=== PATIENT | female | born 1980 | race Caucasian/White ===

== ENCOUNTER 2024-03-14 16:04 | Inpatient (IN) | payer MEDICAID, OTHER ==
[~2024-03-14] VITALS: Ht 157.5 cm; Wt 60.6 kg
[~2024-03-14 16:04] MED LIST: DOC100C PO; IBUP-1456 PO; [UNRECOGNIZED DRUG - CODE]
[2024-03-14 17:10] LABS: Hematocrit 40.6 % (36.0-46.0); Hemoglobin 13.9 g/dL (12.2-16.2); Mean Corpuscular Hemoglobin 28.6 pg (28.0-32.0); Mean Corpuscular Hgb Conc. 34.3 g/dL (32.0-36.0); Mean Corpuscular Volume 83.5 fL (80.0-100.0); Platelet Count (auto) 373 10^3/uL (140-450); Red Blood Cells 4.86 10^6/uL (4.0-5.20); Red Cell Distribution Width 14.6 % (11.8-14.3)
[2024-03-14 17:26] LABS: Basophils % (manual) 0 (0.0-2.0); Blast Cells 0; Eosinophils % (manual) 0 (0-7); Metamyelocytes % 0; Myelocytes % 0; Promyelocytes % 0; Reactive Lymphocytes 0
[2024-03-14 17:40] LABS: Alanine Aminotransferase 30 U/L (7-40); Albumin 4.3 g/dL (3.2-4.8); Alkaline Phosphatase 155 U/L (46-116); Anion Gap 11 (5-15); Aspartate Aminotransferase 48 U/L (13-40); BUN/Creatinine Ratio 13.2 (10.0-20.0); Blood Urea Nitrogen 9 mg/dL (9-23); Calcium 8.7 mg/dL (8.7-10.4); Carbon Dioxide 21 mmol/L (20-30); Chloride 96 mmol/L (98-107); Glucose 102 mg/dL (74-106); Lipase 21 U/L (12-53); Potassium 3.9 mmol/L (3.5-5.1); Sodium 128 mmol/L (136-145)
[2024-03-14] MEDS: SODIUM CHLORIDE 0.9% 1,000 ML IV ONE ×2 (17:40→18:42)
[2024-03-14 17:41] LABS: Bilirubin, Total 1.8 mg/dL (0.2-1.0); Total Protein 6.9 g/dL (5.7-8.2)
[2024-03-14] MEDS: cefTRIAXone 1GM/50ML D5W 50 ML IV ONE (17:41)
[2024-03-14 17:45] LABS: CRP High Sensitivity > 20.0 mg/dL (<1.0)
[2024-03-14 18:00] VITALS: PULSE 113; RESP 19; O2SAT 96
[2024-03-14 18:11] LABS: Anisocytosis Slight; Band Neutrophils % (manual) 10; Lymphocytes % (manual) 7 (10.0-50.0); Monocytes % (manual) 7 (0-12); Platelet Estimate Adequate
[2024-03-14] MEDS: ACETAMINOPHEN 325 MG TAB PO ONE (18:17)
[2024-03-14] MEDS: fentaNYL CITRATE 100 MCG/2 ML VL IV ONE (18:49)
[2024-03-14 19:54] LABS: Urine Bacteria FEW /hpf (None Seen); Urine Blood TRACE /uL (Negative); Urine Clarity Turbid (Clear); Urine Color Colorless (Yellow); Urine Protein, UAD TRACE (Negative); Urine Specific Gravity 1.003 (1.001-1.035); Urine Urobilinogen Normal (Negative); Urine WBC 100 /hpf (0 - 5); Urine pH 5.5 (5.0-9.0)
[2024-03-14 20:10] LABS: Amphetamine Screen, Urine Pos (NEGATIVE); Barbiturate Scree,Urine Neg (NEGATIVE); Benzodiazephine Screen, Urine Neg (NEGATIVE); Cannabinoid Screen, Urine Neg (NEGATIVE); Cocaine Screen, Urine Neg (NEGATIVE); Opiate Scree,Urine Neg (NEGATIVE); Phencyclidine Screen, Urine Neg (NEGATIVE)
[2024-03-14] MEDS ORDERED: VANCOMYCIN PER PHARMACY 0 MG IV SCH (20:45)
[2024-03-14] MEDS ORDERED: VANCOMYCIN 1GM/200ML 200 ML IV ONE (20:45)
[2024-03-14] MEDS ORDERED: VANCOMYCIN 1GM/200ML 200 ML IV SCH (21:00)
[2024-03-14] MEDS: SODIUM CHLORIDE 0.9% 1,000 ML IV SCH (21:40)
[2024-03-14] MEDS: VANCOMYCIN 1GM/200ML 200 ML IV ONE (21:41)
[2024-03-14] MEDS: MORPHINE SULFATE INJ 2 MG/ml SYRG IV PRN (22:00)
[2024-03-15] VITALS (9 sets, daily range): BP systolic 99–128; BP diastolic 62–75; PULSE 63–120; RESP 15–20; TEMP 96.2–101.3; O2SAT 94–98
[2024-03-15] MEDS ORDERED: MORPHINE SULFATE INJ 2 MG/ml SYRG IV PRN (00:30)
[2024-03-15] MEDS ORDERED: NITROGLYCERIN 0.4 MG SL TAB SL PRN (00:30)
[2024-03-15] MEDS ORDERED: FLUO-126 PO (03:07)
[2024-03-15 05:47] LABS: Basophils # (auto) 0.1 10 ^3/uL (0-0.2); Basophils % (auto) 0.4 % (0.0-2.0); Eosinophils # (auto) 0 10 ^3/uL (0-0.8); Eosinophils % (auto) 0.1 % (0.0-7.0); Hematocrit 33.2 % (36.0-46.0); Hemoglobin 11.5 g/dL (12.2-16.2); Lymphocytes # (auto) 0.9 10 ^3/uL (0.4-5.4); Lymphocytes % (auto) 6.3 % (10.0-50.0); Mean Corpuscular Hemoglobin 28.8 pg (28.0-32.0); Mean Corpuscular Hgb Conc. 34.7 g/dL (32.0-36.0); Monocytes # (auto) 1.4 10 ^3/uL (0-1.3); Monocytes % (auto) 9.7 % (0.0-12.0); Neutrophils # (auto) 12.1 10 ^3/uL (1.6-8.6); Neutrophils % (auto) 83.5 % (37.0-80.0); Platelet Count (auto) 277 10^3/uL (140-450); Red Blood Cells 4.01 10^6/uL (4.0-5.20); Red Cell Distribution Width 14.5 % (11.8-14.3); White Blood Cell 14.5 10^3/uL (4.4-10.8)
[2024-03-15 06:05] LABS: Alanine Aminotransferase 23 U/L (7-40); Albumin 3.4 g/dL (3.2-4.8); Alkaline Phosphatase 130 U/L (46-116); Anion Gap 8 (5-15); Aspartate Aminotransferase 22 U/L (13-40); BUN/Creatinine Ratio 14.3 (10.0-20.0); Blood Urea Nitrogen 8 mg/dL (9-23); Calcium 8.1 mg/dL (8.7-10.4); Carbon Dioxide 24 mmol/L (20-30); Chloride 104 mmol/L (98-107); Glucose 129 mg/dL (74-106); Potassium 3.5 mmol/L (3.5-5.1)
[2024-03-15 06:06] LABS: Bilirubin, Total 0.7 mg/dL (0.2-1.0); Total Protein 5.8 g/dL (5.7-8.2)
[2024-03-15 06:16] LABS: Sodium 136 mmol/L (136-145)
[2024-03-15] MEDS: cefTRIAXone 1GM/50ML D5W 50 ML IV SCH (08:23)
[2024-03-15] MEDS: ONDANSETRON HCL 4 MG/2 ML VIAL IV PRN (08:26)
[2024-03-15] MEDS: DOCUSATE SOD 100 MG CAP PO PRN (08:57)
[2024-03-15] MEDS: ACETAMINOPHEN 325 MG TAB PO PRN (08:59)
[2024-03-15] MEDS: PNEUMOCOCCAL VACC POLYS 25 MCG/0.5 ML VIAL IM ONE (09:00)
[2024-03-15] MEDS ORDERED: VANCOMYCIN 1GM/200ML 200 ML IV SCH (10:00)
[2024-03-15] MEDS: LACTULOSE 20Gm/30ML SOLN PO ONE (16:51)
[2024-03-15] MEDS: DOCUSATE SOD 100 MG CAP PO SCH (16:51)
[2024-03-15] MEDS: FLUoxetine HCL 10 MG CAP PO ONE (20:59)
[2024-03-15] MEDS: LACTULOSE 20Gm/30ML SOLN PO SCH (22:14)
[2024-03-15] MEDS: HYDROcodone-ACET 5/325MG TAB PO PRN (22:14)
[2024-03-16] VITALS (9 sets, daily range): BP systolic 93–113; BP diastolic 51–75; PULSE 70–101; RESP 16–20; TEMP 97.7–98.9; O2SAT 96–99
[2024-03-16] MEDS: FLUoxetine HCL 10 MG CAP PO SCH (09:44)
[2024-03-16 15:34] LABS: Hemoglobin 11.8 g/dL (12.2-16.2); Mean Corpuscular Hgb Conc. 34.1 g/dL (32.0-36.0)
[2024-03-16 15:35] LABS: Chloride 106 mmol/L (98-107); Potassium 3.5 mmol/L (3.5-5.1); Sodium 138 mmol/L (136-145)
[2024-03-16 15:36] LABS: Anion Gap 6 (5-15); Calcium 7.9 mg/dL (8.7-10.4); Carbon Dioxide 26 mmol/L (20-30)
[2024-03-16 15:41] LABS: Glucose 106 mg/dL (74-106)
[2024-03-16 15:43] LABS: Hematocrit 34.7 % (36.0-46.0); Mean Corpuscular Hemoglobin 28.8 pg (28.0-32.0); Mean Corpuscular Volume 84.4 fL (80.0-100.0); Platelet Count (auto) 261 10^3/uL (140-450); Red Blood Cells 4.11 10^6/uL (4.0-5.20); Red Cell Distribution Width 14.3 % (11.8-14.3); White Blood Cell 8.4 10^3/uL (4.4-10.8)
[2024-03-16 15:47] LABS: Basophils % (manual) 0 (0.0-2.0); Blast Cells 0; Blood Urea Nitrogen < 5 mg/dL (9-23); Eosinophils % (manual) 0 (0-7); Metamyelocytes % 0; Myelocytes % 0; Promyelocytes % 0; Reactive Lymphocytes 0
[2024-03-16 18:05] LABS: Band Neutrophils % (manual) 5; Lymphocytes % (manual) 8 (10.0-50.0); Monocytes % (manual) 11 (0-12); Platelet Estimate Adequate
[2024-03-16 18:06] LABS: Anisocytosis Slight
[2024-03-16] MEDS ORDERED: IBUPROFEN 600 MG TAB PO PRN (18:30)
[2024-03-16] MEDS: HYDROcodone-ACET 7.5/325MG TAB PO PRN (19:51)
[2024-03-17] VITALS (9 sets, daily range): BP systolic 89–117; BP diastolic 48–77; PULSE 77–94; RESP 16–20; TEMP 97.4–98.5; O2SAT 94–100
[2024-03-17] MEDS: ONDANSETRON HCL 4 MG/2 ML VIAL IV PRN (01:21)
[2024-03-17 07:03] LABS: Basophils # (auto) 0.1 10 ^3/uL (0-0.2); Basophils % (auto) 0.9 % (0.0-2.0); Eosinophils # (auto) 0.2 10 ^3/uL (0-0.8); Eosinophils % (auto) 4.3 % (0.0-7.0); Hematocrit 31.7 % (36.0-46.0); Hemoglobin 11.1 g/dL (12.2-16.2); Lymphocytes # (auto) 1.2 10 ^3/uL (0.4-5.4); Lymphocytes % (auto) 21.8 % (10.0-50.0); Mean Corpuscular Hemoglobin 29.5 pg (28.0-32.0); Mean Corpuscular Volume 84.1 fL (80.0-100.0); Monocytes # (auto) 0.8 10 ^3/uL (0-1.3); Neutrophils # (auto) 3.2 10 ^3/uL (1.6-8.6); Platelet Count (auto) 273 10^3/uL (140-450); Red Blood Cells 3.77 10^6/uL (4.0-5.20); Red Cell Distribution Width 14.2 % (11.8-14.3); White Blood Cell 5.5 10^3/uL (4.4-10.8)
[2024-03-17 07:06] LABS: Calcium 8.1 mg/dL (8.7-10.4); Chloride 107 mmol/L (98-107); Potassium 3.4 mmol/L (3.5-5.1); Sodium 140 mmol/L (136-145)
[2024-03-17 07:07] LABS: Anion Gap 5 (5-15); Carbon Dioxide 28 mmol/L (20-30)
[2024-03-17 07:12] LABS: Glucose 95 mg/dL (74-106)
[2024-03-17 07:20] LABS: BUN/Creatinine Ratio 12.2 (10.0-20.0); Blood Urea Nitrogen < 5 mg/dL (9-23)
[2024-03-17] MEDS: POTASSIUM EFFERVESENT TAB 25 MEQ GT ONE (10:18)
[2024-03-18 01:00] VITALS: BP 105/60; PULSE 75; RESP 20; TEMP 98.1; O2SAT 99
[2024-03-18 05:00] VITALS: BP_SYST 93; BP_SYST 99; BP_DIAS 48; BP_DIAS 53; PULSE 80; PULSE 84; RESP 18; RESP 20; TEMP 97.6; TEMP 98.2; O2SAT 95; O2SAT 97
[2024-03-18 08:00] VITALS: PULSE 77; RESP 18; O2SAT 95
[2024-03-18 08:55] LABS: Basophils # (auto) 0.1 10 ^3/uL (0-0.2); Eosinophils # (auto) 0.2 10 ^3/uL (0-0.8); Eosinophils % (auto) 4.2 % (0.0-7.0); Hematocrit 32.1 % (36.0-46.0); Hemoglobin 10.9 g/dL (12.2-16.2); Lymphocytes # (auto) 1.4 10 ^3/uL (0.4-5.4); Lymphocytes % (auto) 27.7 % (10.0-50.0); Mean Corpuscular Hemoglobin 28.8 pg (28.0-32.0); Mean Corpuscular Volume 84.6 fL (80.0-100.0); Monocytes # (auto) 0.5 10 ^3/uL (0-1.3); Monocytes % (auto) 10.4 % (0.0-12.0); Neutrophils # (auto) 2.9 10 ^3/uL (1.6-8.6); Neutrophils % (auto) 56.7 % (37.0-80.0); Platelet Count (auto) 285 10^3/uL (140-450); Red Cell Distribution Width 14.2 % (11.8-14.3); White Blood Cell 5.1 10^3/uL (4.4-10.8)
[2024-03-18 09:00] VITALS: BP 101/75; PULSE 62; RESP 15; TEMP 98; O2SAT 100
[2024-03-18 09:24] LABS: Chloride 106 mmol/L (98-107); Potassium 3.5 mmol/L (3.5-5.1); Sodium 138 mmol/L (136-145)
[2024-03-18 09:25] LABS: Anion Gap 0 (5-15); Calcium 8.5 mg/dL (8.7-10.4); Carbon Dioxide 32 mmol/L (20-30)
[2024-03-18 09:30] LABS: Glucose 176 mg/dL (74-106)
[2024-03-18 09:35] LABS: BUN/Creatinine Ratio 9.6 (10.0-20.0); Blood Urea Nitrogen < 5 mg/dL (9-23)
[2024-03-18] MEDS: CEFPODOXIME PROXETIL 200 MG TAB PO ONE (11:00)
[2024-03-18] MEDS ORDERED: CEFD300C2 PO (11:58)
[2024-03-18] MEDS ORDERED: TRAM-626 PO (11:58)
[2024-03-18 13:19] VITALS: BP 105/62; PULSE 64; RESP 15; TEMP 98.2; O2SAT 98
[2024-03-18 13:50] VITALS: BP 94/52; PULSE 85; RESP 16; TEMP 99.2; O2SAT 95
[2024-03-18] MEDS ORDERED: CEFPODOXIME PROXETIL 200 MG TAB PO SCH (22:00)
== END 2024-03-18 16:12 | disposition home or self-care (01) | DRG 872 ==
LOC: EDBD 16:04 → ER 16:04 → TELE 03-15 00:31 → TELE-WESTW 03-15 02:50 → WEST WING 03-18 03:19
PROVIDERS: ADMIT Internal Medicine; ATTEND Internal Medicine
DX: A41.9 Sepsis, unspecified organism (principal); E87.1 Hypo-osmolality and hyponatremia; N12 Tubulo-interstitial nephritis, not specified as acute or chronic; F15.10 Other stimulant abuse, uncomplicated; I10 Essential (primary) hypertension; F41.9 Anxiety disorder, unspecified; F17.210 Nicotine dependence, cigarettes, uncomplicated; F32.9 Major depressive disorder, single episode, unspecified; K59.09 Other constipation; E87.6 Hypokalemia; R31.9 Hematuria, unspecified; Z90.49 Acquired absence of other specified parts of digestive tract; Z79.899 Other long term (current) drug therapy; Z84.1 Family history of disorders of kidney and ureter
CPT/HCPCS: 36415; 74176; 76775; 80048; 80053; 80202; 80307; 81001; 82550; 82565; 83605; 83690; 84484; 84702; 85007; 85025; 85027; 86141; 87040; 87086; 99291; G0378; J2405